=== PATIENT | male | born 1955 | race Caucasian/White ===

== ENCOUNTER 2017-02-11 18:08 | Inpatient (IN) | payer MEDICARE, MEDICAID ==
[~2017-02-11 18:08] MED LIST: Propofol* 100 ML ONE
[2017-02-11] MEDS ORDERED: Acetaminophen TAB* 325 MG PRN (18:18)
[2017-02-11] MEDS ORDERED: Morphine INJ* 2 MG/ML 1 ML SYRINGE IV PRN (18:22)
[2017-02-11] MEDS ORDERED: Dextrose 50% Syringe 50 ML* 25 GM/50 ML SYRINGE IV PUSH PRN (18:25)
[2017-02-11] MEDS: NS 0.9% 1000 ML* 1,000 ML IV SCH (18:31)
[2017-02-11 19:00] LABS: BUN/Creatinine Ratio 32.4 (8-20); Calcium 8.1 mg/dL (8.6-10.3); EGFR African American 91.5 (>60); EGFR Non-African American 71.1 (>60); Potassium 4.4 mmol/L (3.5-5.0)
[2017-02-11 19:11] LABS: Troponin I 0.04 ng/mL (<0.04)
--- NOTE | 2017-02-11 19:14 | RAD ---
Indication: Acute respiratory failure. Single frontal view of the chest performed at 1845 hours was reviewed. Comparison is made with previous exam dated February 15, 2016. No mediastinal shift is noted. There is cardiomegaly noted. Endotracheal tube is just above the jaqueline. Interstitial edema consistent with CHF is noted. IMPRESSION: CARDIOMEGALY. ENDOTRACHEAL TUBE IS JUST ABOVE THE JAQUELINE. PERSISTENT INTERSTITIAL EDEMA IS NOTED.
[2017-02-11] MEDS: Albuterol/Ipratropium NEB.SOL* Albuterol 2.5 MG/Ipratropium 0.5 MG 3 ML INH SCH (19:28)
[2017-02-11 20:33] LABS: FIO2 80; PCO2 Arterial 63 mmHg (35-45); Resp Rate 18; Ventilator Volume 480
[2017-02-11] MEDS: methylPREDNISolone SOD 40 MG* 1 ML VIAL IV SCH (20:51)
[2017-02-11] MEDS: Heparin VIAL(*) 5000 UNITS/ML VIAL (FIVE THOUSAND) SUBCUT SCH (20:51)
[2017-02-11] MEDS: Famotidine IV* 10 MG/ML 2 ML (20 mg) IV SLOW PU SCH (20:51)
[2017-02-11] MEDS: Tacrolimus CAP(*) 1 MG PO SCH (20:54)
[2017-02-11] MEDS: Propofol* 100 ML IV SCH (21:12)
[2017-02-12] MEDS: Albuterol/Ipratropium NEB.SOL* Albuterol 2.5 MG/Ipratropium 0.5 MG 3 ML INH SCH ×4 (00:24→19:26)
[2017-02-12] MEDS: Propofol* 100 ML IV SCH ×8 (00:30→23:12)
[2017-02-12 01:26] LABS: Troponin I 0.03 ng/mL (<0.04)
[2017-02-12] MEDS: Insulin LISPRO* 1 UNITS UNIT SUBCUT SCH ×4 (02:38→17:35)
[2017-02-12] MEDS: methylPREDNISolone SOD 40 MG* 1 ML VIAL IV SCH ×3 (03:09→18:04)
[2017-02-12] MEDS: NS 0.9% 1000 ML* 1,000 ML IV SCH ×2 (03:09→09:34)
--- NOTE | 2017-02-12 03:26 | HP ---
HISTORY AND PHYSICAL: DATE OF ADMISSION: 02/11/17 PRIMARY CARE PHYSICIAN: Dr. Brock. The patient is transferred from [facility] after he was placed on ventilator early in the morning. CHIEF COMPLAINT: Shortness of breath. HISTORY OF PRESENT ILLNESS FROM: From the patient's medical records, the patient came in in respiratory distress and confusion and slight agitation to [facility] on the evening of 02/10/17. He apparently wanted to go home, was agitated, was admitting to productive cough. The chest x-ray obtained in the emergency department showed vascular congestion, low lung volumes, small right- sided pleural effusion, and question pleural thickening. He was placed originally on BiPAP. His initial blood gas showed respiratory acidosis, which continued to progress and the patient was intubated at 5:40 a.m. on 02/11/17. A left-sided subclavian triple lumen was placed by Dr. Brock after intubation. The patient was placed on propofol and Dr. Tang accepted the patient for transfer. Unfortunately, there were issues with transportation in that it did not occur until approximately 12 hours later and the patient did arrive to our ICU at approximately 6 p.m. He is going to be admitted with diagnosis of acute respiratory failure. PAST MEDICAL HISTORY: Obtained from our medical records include: 1. Hepatitis C. 2. History of COPD, oxygen dependent. 3. History of anemia. 4. History of CHF in the past. 5. Hypertension. 6. Gastroesophageal reflux disease. 7. Diabetes. 8. Status post liver transplant. 9. History of abdominal hernia repair. MEDICATIONS: At home unknown. We will try to call [facility] and inquire about the medications, but apparently, his pharmacy is unknown and his medication list is unknown also. In [facility], the patient received a dose of Solu- Medrol as well as ceftriaxone and azithromycin. He also received nebulizer treatments and intravenous fluids. He was placed on propofol and transported to our facility. ALLERGIES: Noted to be SULFA ANTIBIOTICS, unknown reaction. FAMILY HISTORY: Per medical records, the patient has a history of cirrhosis of the liver in father. SOCIAL HISTORY: The patient has a history of long-term smoking despite being oxygen dependent. He lives by himself. He never appointed a surrogate decision maker that we know of. [facility] was unable to find or contact any family members. Right now, the patient is intubated and not able to communicate due to sedation required for intubation. REVIEW OF SYSTEMS: Unobtainable due to the patient being intubated and sedated. PHYSICAL EXAMINATION GENERAL: The patient is a pleasant 62-year-old male who is in no acute distress. The patient is sedated, intubated. When his sedation was slightly decreased, he was unable to show thumbs up bilaterally and move his toes bilaterally. VITAL SIGNS: Blood pressure of 120/100, heart rate of 88 and regular, respiratory rate 18, oxygen saturation 96% on FiO2 of 80% on ventilator. The patient's current ventilator settings is assist control with tidal volume of 480 mL, respiratory rate 18, FiO2 of 80%. The patient's temperature is 98.2. HEENT: Head: Atraumatic, normocephalic. Eyes: Pupils are uneven with the left pupil being of irregular shape and nonreactive and large, most likely posttraumatic. Oropharynx clear. Mucosa dry. ET tube and NG tube in place. NECK: Supple. No JVD, no bruit bilaterally. RESPIRATORY: Coarse breath sounds bilaterally. No wheezes. CARDIOVASCULAR: Regular rate and rhythm. No murmur. ABDOMEN: Very large ventral hernia present. When the patient coughs, it expands to a size of a basketball. It appears to be nontender. Bowel sounds are present in all 4 quadrants. Slightly tympanic to percussion abdomen. EXTREMITIES: There is no edema. Pulses +2 bilaterally. No clubbing or cyanosis. NEURO: Once again, the patient follows commands when his sedation was slightly lightened and there was no evidence of focal motor deficit that I could establish. He does have a left pupil that is dilated and appears either postsurgical or posttraumatically deformed. SKIN: On evaluation of the skin, no ecchymotic areas or rashes noted. The patient has left subclavian triple-lumen catheter in place. DIAGNOSTIC STUDIES/LAB DATA: Obtained at [facility] included today's ABG around intubation time showed pH of 7.12, PCO2 of 119, PO2 of 77, bicarb of 38.6. After intubation, his initial pH was 7.29, PCO2 of 71, PO2 of 68, bicarb of 33, and later on, at 1 p.m., his pH normalized at 7.38, PCO2 of 58, PO2 of 71 , bicarb of 34. The patient's one troponin obtained at [facility] was 0.04. CBC today: White blood cell count of 10.9, hemoglobin of 12.2, hematocrit of 41 , and platelets of 175. There were 6 bands on differential. Sodium was 134, potassium 4.8, chloride 96, BUN 34; creatinine 1.3, yesterday his creatinine was 1.5. The patient's liver function tests, it does not appear that they were present at admission at [facility]. The patient's INR was 1.2, PT of 12.6. Urinalysis showed specific gravity of 1.017 with trace blood, negative for nitrite, trace esterase, and +1 bacteria. Liver function tests, I just found, showed bilirubin of 0.5, AST of 16, ALT of 10, and alkaline phosphatase of 110. Albumin of 3.1, total protein of 7.2 that was obtained on 02/10/17. Urine drug screen was unremarkable. Portable chest x-ray obtained on admission showed impression: "Low lung volumes with cardiomegaly, mild apparent pulmonary vascular congestion which may be accentuated by the low lung volumes. Small right-sided pleural effusion versus pleural thickening. Recommend clinical correlation and followup." Portable chest x-ray after intubation showed ET tube that was seen was in the distal tip approximately 1.5 cm above the jaqueline. An NG tube was noted with the distal tip below the left hemidiaphragm. Bibasilar hypoaerations have been noted. No other definite significant interval changes. The patient's EKG obtained in our facility showed normal sinus rhythm with a heart rate of 78 beats per minute. Nonspecific ST changes in leads V1, V3, and V4. There were biphasic T waves. Flattening of T waves in leads III and aVF. Comparing with an EKG that we have at our facility from February of 2016, the biphasic T waves and flattening of T waves in leads III and aVF are new. ASSESSMENT AND PLAN: Acute ventilator-dependent respiratory failure due to chronic obstructive pulmonary disease, respiratory acidosis, and possible pneumonia. The patient is going to be continued on ventilator with the same settings as he was transferred on. ABG is going to be performed within an hour and settings may need to be adjusted. For the time being, sedation is going to be continued with propofol and Pepcid is going to be placed on IV for GI prophylaxis while n.p.o. We will continue ceftriaxone and azithromycin. Sputum cultures are going to be obtained. I will also continue Solu-Medrol at 40 mg IV every 8 hours. The case was discussed with Dr. Tang who agreed with the plan. In regards to history of liver transplant, the patient is going to be placed on Prograf at 5 mg via NG b.i.d. as previously taken. In regards to slight elevation of troponin, I will follow up with troponins after transfer. That will be drawn now. I do not believe the patient had complaints of chest pain at [facility]. He appears comfortable right now. His EKG is slightly changed from prior. It may be due to demand ischemia though. I will obtain transthoracic echocardiogram. The patient does have history of congestive heart failure, but unknown ejection fraction. For history of diabetes, the patient's medications at home are going to be held and the patient is going to be placed on insulin sliding scale with fingersticks every 6 hours. For DVT prophylaxis, the patient is going to be placed on heparin subcutaneously. The patient's code status is full. We do not know a surrogate or family member or healthcare proxy for this patient. I will ask Social Work to see the patient in the morning for consultation in regards to that and to help us establish next of kin. TIME SPENT: Approximately 72 minutes was spent on admission of this patient, more than half that time was spent in the patient's room and managing this critically sick patient. CC: Dr. Brock; Dr. Tang * [id number]/CPS #: [id number] MTDD
[2017-02-12] MEDS: Heparin VIAL(*) 5000 UNITS/ML VIAL (FIVE THOUSAND) SUBCUT SCH ×3 (05:11→21:10)
[2017-02-12 05:39] LABS: Hematocrit 37 % (42-52); Hemoglobin 11.7 g/dl (14.0-18.0); Mean Corpuscular HGB Conc 31 g/dl (31-36); Mean Corpuscular Hemoglobin 25 pg (27-31); Mean Corpuscular Volume 79 fL (80-94); Mean Platelet Volume 8 um3 (7.4-10.4); Red Blood Count 4.74 10^6/ul (4.0-5.4); Red Cell Distribution Width 18 % (10.5-15)
[2017-02-12 05:51] LABS: Albumin 2.9 g/dL (3.2-5.2); Calcium 7.9 mg/dL (8.6-10.3); EGFR African American 102.6 (>60); EGFR Non-African American 79.8 (>60); Globulin 2.7 g/dL (2-4); Potassium 4.5 mmol/L (3.5-5.0); Total Bilirubin 0.4 mg/dL (0.2-1.0); Total Protein 5.6 g/dL (6.4-8.9)
[2017-02-12] MEDS: Azithromycin IV(*) 500 MG in NS 0.9% 250 ML* 250 ML IVPB SCH (08:04)
[2017-02-12] MEDS: Famotidine IV* 10 MG/ML 2 ML (20 mg) IV SLOW PU SCH (08:04)
[2017-02-12] MEDS: Tacrolimus CAP(*) 1 MG PO SCH ×2 (08:04→21:11)
[2017-02-12] MEDS: cefTRIAXone VIAL(*) 1,000 MG in NS 0.9% 50 ML* 50 ML IVPB SCH (09:34)
[2017-02-12] MEDS ORDERED: NS 0.9% 1000 ML* 1,000 ML IV SCH (10:58)
--- NOTE | 2017-02-12 11:02 | PN ---
Progress Note - Progress Note Note: CRITICAL CARE MEDICINE Date: 02/12/17 Time: 925 SUBJECTIVE: Patient seen and examined. PHYSICAL EXAM: appears much older then age Vital Signs: Reviewed. Neurologic: sedated with propofol but off he follows commands. HEENT: pupils equal & reactive. Sclera anicteric. Trachea midline with 7.5 ett. Cardiovascular: distant, baldev, S1 S2 Respiratory: coarse rhonchi and mild wheeze bl L>R Abdomen: Soft, large reducible abdominal hernia and p;ost liver transplant scarring. nt. Extremities: Warm. chronic changes Access: left subcl LABS: Reviewed. IMAGING: Reviewed. MEDICATIONS: Reviewed. ASSESSMENT: 62 M Acute on chronic hypercarbic and hypoxic resp failure Tx for CAP O2 dep COPD uncontrolled DM h/o CHF h/o Liver transplant on suppressive tx with tacrolimus PLAN: Neurologic: keep sedated with prop. rass -2. prns Cardiovascular: Perfusing. bp stable. off ivf. Respiratory: attempted vent adjustments as he has required 70-80% FIO2. Poor compliance; unable to tolerate aprv. adjusted to PCV with ability to maintain but airway resistance also problematic and hence need to keep sedation adequate. Not going to be much to recruit or recover. COPD adjunctives. Gastrointestinal: start tf. on H2. chronic liver transplant f/u -on tacrolimus Renal/Metabolic: stable. dior for now. f/u lytes Infectious Disease: on C3 and azithro. f/u cx from [place] before de- escalation. Hematology: stable. hsq Endocrine: ssi. steroids. Musculoskeletal: bedrest currently. Psych/Social: will need to seek out next of kin as none found yet. place on nicotine td Supportive and preventative care as ordered. SUP: H2 VTE prophylaxis: heparin Dior catheter given critical illness, monitoring needs for accurate assessment of VELASQUEZ and KDIGO criteria for critically ill patients and to avoid potential harms of urinary retention, skin breakdown/ulcers. Disposition: ICU Code Status: Full currently Critical Care Time: 45min FJeanmarie Tang DO
[2017-02-12] MEDS: Chlorhexidine MOUTHWASH 0.12%* 15 ML UDC TOPICAL SCH ×4 (11:37→22:27)
--- NOTE | 2017-02-12 13:06 | ECHO ---
Patient: STEFANIE MCKINNEY [facility] Rec#: [id number] : 1955 Date: 02/12/2017 Age: 62y Height: 177.8 cm / 70.0 in Weight: 120.2 kg / 264.9 lbs Sex: M BSA: 2.35 Room#: ICU 6 Admit Date#: 02/11/2017 Type: Inpatient Referring: Yue Willis MD Reading: Claudy Blair MD Office Runner: [facility],RD[facility] Transthoracic Echocardiogram Indication: CHF BP: 113/63 HR: 54 Rhythm: Bradycardia Findings History: COPD, CHF, HTN, DM, liver transplant, smoker. Technical Comments: The study quality is good. Completed 1220 Left Ventricle: The left ventricular chamber size is normal. Moderate concentric left ventricular hypertrophy is observed. The estimated ejection fraction is 50-55%. Abnormal left ventricular diastolic function is observed. The patient was unable to perform a Valsalva maneuver. Left Atrium: The left atrium is mildly dilated. Right Ventricle: The right ventricle wall thickness is mildly increased. The right ventricle is mildly dilated. The right ventricular global systolic function is low normal. Right Atrium: The right atrium is mild to moderately dilated. Aortic Valve: The aortic valve is trileaflet. The aortic valve leaflets are mildly thickened. There is mild to moderate aortic regurgitation. There is no evidence of aortic stenosis. Mitral Valve: The mitral valve leaflets appear normal. There is a trace of mitral regurgitation. There is no evidence of mitral stenosis. Tricuspid Valve: The tricuspid valve leaflets are normal. There is mild tricuspid regurgitation. There is evidence of mild pulmonary hypertension. Pulmonic Valve: The pulmonic valve appears normal. There is a trace pulmonic regurgitation. Pericardium: There is no significant pericardial effusion. Aorta: There is no dilatation of the ascending aorta. The aortic arch is not well visualized. There is mild dilatation of the aortic root. Pulmonary Artery: The main pulmonary artery appears normal. Venous: Unable to accurately comment on the size collapsibility of the IVC as the patient in known to be on mechanical ventilation. Summary: There was not any prior study for comparison. Conclusions The left ventricular chamber size is normal. Moderate concentric left ventricular hypertrophy is observed. The estimated ejection fraction is 50-55%. The left atrium is mildly dilated. The right atrium is mild to moderately dilated. There is mild to moderate aortic regurgitation. There is a trace of mitral regurgitation. There is mild tricuspid regurgitation. Measurements Name Value Normal Range RVIDd (AP) 2D 3.4 cm (0.9 - 2.6) RVDdMajor (2D) 4.1 cm (2.2 - 4.4) RAd ISD 4CH 5.5 cm (3.4 - 4.9) RA (A4C)W 5 cm (2.9 - 4.6) IVSd (2D) 1.6 cm (0.6 - 1) LVPWd (2D) 1.5 cm (0.6 - 1) LVIDd (2D) 4.2 cm (3.6 - 5.4) LVIDs (2D) 2.5 cm - LV FS (2D) 39 % (25 - 45) Aortic Annulus 2.1 cm (1.4 - 2.6) Ao root diameter (2D) 3.6 cm (2.1 - 3.5) Ascending Ao 3.1 cm (2.1 - 3.4) LA dimension (AP) 2D 5.1 cm (2.3 - 3.8) LAd ISD 4CH 6 cm (2.9 - 5.3) LA ISD 4CH W 5.1 cm (2.5 - 4.5) Name Value Normal Range LA ESV SP 4CH (A/L) 80.7 ml - LA ESV SP 2CH (A/L) 71.28 ml - LA ESV BP (A/L) 80.32 ml - LA ESV BP (A/L) index 34 ml/m2 - LA ESV SP 4CH (MOD) 74.05 ml - LA ESV SP 2CH (MOD) 69.31 ml - Name Value Normal Range MV E-wave Vmax 0.8 m/sec - MV deceleration time 188 msec - MV A-wave Vmax 0.8 m/sec - MV E:A ratio 1 ratio - P. vein S-wave Vmax 0.4 m/sec - P. vein D-wave Vmax 0.4 m/sec - P. vein S:D Vmax ratio 1.1 ratio - P. vein A-wave duration 148 msec - LV septal e' Vmax 0.05 m/sec - LV lateral e' Vmax 0.06 m/sec - LV E:e' septal ratio 16 ratio - LV E:e' lateral ratio 13 ratio - Name Value Normal Range AV Vmax 1.7 m/sec - AV VTI 41.1 cm - AV peak gradient 11.6 mmHg - AV mean gradient 5.9 mmHg - LVOT Vmax 1.4 m/sec - LVOT VTI 34.9 cm - LVOT peak gradient 8 mmHg - LVOT mean gradient 3.6 mmHg - AR PHT 569.89 msec - AR peak gradient 56.4 mmHg - BON Vmax 0.7 m/sec - Name Value Normal Range TR Vmax 2.7 m/sec - TR peak gradient 29 mmHg - RAP 8 mmHg - RVSP 37 mmHg - IVC diameter 2 cm - Name Value Normal Range PV Vmax 0.6 m/sec - PV peak gradient 1.4 mmHg -
[2017-02-13] MEDS: Insulin LISPRO* 1 UNITS UNIT SUBCUT SCH ×5 (00:36→23:35)
[2017-02-13] MEDS: Albuterol/Ipratropium NEB.SOL* Albuterol 2.5 MG/Ipratropium 0.5 MG 3 ML INH SCH ×4 (01:32→19:34)
[2017-02-13] MEDS: methylPREDNISolone SOD 40 MG* 1 ML VIAL IV SCH ×3 (03:16→17:23)
[2017-02-13] MEDS: Propofol* 100 ML IV SCH ×7 (03:16→23:57)
[2017-02-13] MEDS: Chlorhexidine MOUTHWASH 0.12%* 15 ML UDC TOPICAL SCH ×6 (03:17→22:08)
[2017-02-13] MEDS: Clotrimazole 1% CREAM* 30 GM TOPICAL SCH ×3 (04:17→20:23)
[2017-02-13 04:31] LABS: Hematocrit 38 % (42-52); Hemoglobin 12.1 g/dl (14.0-18.0); Mean Corpuscular HGB Conc 32 g/dl (31-36); Mean Corpuscular Hemoglobin 25 pg (27-31); Mean Corpuscular Volume 79 fL (80-94); Mean Platelet Volume 8 um3 (7.4-10.4); Red Blood Count 4.83 10^6/ul (4.0-5.4); Red Cell Distribution Width 18 % (10.5-15); White Blood Count 7.8 10^3/ul (3.5-10.8)
[2017-02-13 04:45] LABS: Calcium 8.3 mg/dL (8.6-10.3); EGFR African American 96.7 (>60); EGFR Non-African American 75.2 (>60); Magnesium 2.6 mg/dL (1.9-2.7); Phosphorus 4.4 mg/dL (2.5-5.0); Potassium 4.4 mmol/L (3.5-5.0)
[2017-02-13] MEDS: Heparin VIAL(*) 5000 UNITS/ML VIAL (FIVE THOUSAND) SUBCUT SCH ×3 (05:31→20:23)
[2017-02-13] MEDS: Tacrolimus CAP(*) 1 MG PO SCH ×2 (08:30→20:23)
[2017-02-13] MEDS: Famotidine SUSP* 40 MG/5 ML ORAL.SUSP G TUBE SCH (08:30)
[2017-02-13] MEDS: Nicotine PATCH 21 MG/24 HR* PATCH TRANSDERM SCH (08:30)
[2017-02-13] MEDS: Azithromycin IV(*) 500 MG in NS 0.9% 250 ML* 250 ML IVPB SCH (08:51)
[2017-02-13] MEDS: cefTRIAXone VIAL(*) 1,000 MG in NS 0.9% 50 ML* 50 ML IVPB SCH (10:21)
[2017-02-13] MEDS ORDERED: Furosemide IV* 10 MG/ML VIAL (40 MG) IV SLOW PU ONE (10:53)
--- NOTE | 2017-02-13 10:56 | PN ---
Progress Note - Progress Note Note: CRITICAL CARE MEDICINE Date: 02/13/17 Time: 1000 SUBJECTIVE: Patient seen and examined. PHYSICAL EXAM: Vital Signs: Reviewed. Neurologic: sedated with propofol but awakens. HEENT: pupils equal & reactive. Sclera anicteric. Trachea midline with 7.5 ett. Cardiovascular: distant, S1 S2 Respiratory: coarse rhonchi and mild wheeze still but better aeration. Abdomen: Soft, hernia unchanged. Extremities: Warm. chronic changes Access: left subcl cvc LABS: Reviewed. IMAGING: Reviewed. MEDICATIONS: Reviewed. ASSESSMENT: 62 M Acute on chronic hypercarbic and hypoxic resp failure Tx for CAP O2 dep COPD uncontrolled DM h/o CHF h/o Liver transplant on suppressive tx with tacrolimus PLAN: Neurologic: keep sedated with prop. rass -1. prns Cardiovascular: Perfusing. bp stable. dose lasix today. Respiratory: SBT with cpap. needs high level. see if he can mobilize any secretions today and facilitate water movement. Hopefully, with all things equal , will loook towards liberation in next 24hr directly to bipap. Gastrointestinal: continued tf. H2. chronic liver transplant f/u on tacrolimus level Renal/Metabolic: stable. dior for now. f/u lytes Infectious Disease: on C3 and azithro. f/u cx from [place] Hematology: stable. hsq Endocrine: ssi. steroids. Musculoskeletal: bedrest currently. Psych/Social: sister in [place] next of kin Supportive and preventative care as ordered. SUP: H2 VTE prophylaxis: heparin Dior catheter given critical illness, monitoring needs for accurate assessment of VELASQUEZ and KDIGO criteria for critically ill patients and to avoid potential harms of urinary retention, skin breakdown/ulcers. Disposition: ICU Code Status: Full currently Critical Care Time: 35min FJeanmarie Tang DO
[2017-02-13] MEDS ORDERED: Insulin GLARGINE(*) 1 UNITS UNIT SUBCUT ONE (16:00)
[2017-02-13] MEDS: Nicotine Patch Removal NOTE PATCH OFF SCH (20:23)
[2017-02-14] MEDS: Albuterol/Ipratropium NEB.SOL* Albuterol 2.5 MG/Ipratropium 0.5 MG 3 ML INH SCH ×5 (01:28→19:54)
[2017-02-14] MEDS: methylPREDNISolone SOD 40 MG* 1 ML VIAL IV SCH ×2 (02:15→22:58)
[2017-02-14] MEDS: Chlorhexidine MOUTHWASH 0.12%* 15 ML UDC TOPICAL SCH ×3 (02:15→22:58)
[2017-02-14] MEDS: Propofol* 100 ML IV SCH ×3 (02:15→07:47)
[2017-02-14 04:44] LABS: Hematocrit 39 % (42-52); Mean Corpuscular HGB Conc 31 g/dl (31-36); Mean Corpuscular Hemoglobin 24 pg (27-31); Mean Corpuscular Volume 79 fL (80-94); Mean Platelet Volume 8 um3 (7.4-10.4); Red Blood Count 4.92 10^6/ul (4.0-5.4); Red Cell Distribution Width 18 % (10.5-15); White Blood Count 7.1 10^3/ul (3.5-10.8)
[2017-02-14 05:02] LABS: BUN/Creatinine Ratio 57.7 (8-20); Calcium 8.4 mg/dL (8.6-10.3); EGFR African American 143.6 (>60); EGFR Non-African American 111.7 (>60); Magnesium 2.6 mg/dL (1.9-2.7); Phosphorus 3.9 mg/dL (2.5-5.0); Potassium 4.9 mmol/L (3.5-5.0)
[2017-02-14] MEDS: Heparin VIAL(*) 5000 UNITS/ML VIAL (FIVE THOUSAND) SUBCUT SCH ×3 (05:04→22:31)
[2017-02-14] MEDS: Insulin LISPRO* 1 UNITS UNIT SUBCUT SCH ×4 (06:09→22:59)
[2017-02-14] MEDS: Azithromycin IV(*) 500 MG in NS 0.9% 250 ML* 250 ML IVPB SCH (07:56)
[2017-02-14] MEDS: Famotidine SUSP* 40 MG/5 ML ORAL.SUSP G TUBE SCH (07:56)
[2017-02-14] MEDS: Clotrimazole 1% CREAM* 30 GM TOPICAL SCH ×2 (07:56→21:11)
[2017-02-14] MEDS: Tacrolimus CAP(*) 1 MG PO SCH ×2 (07:56→22:31)
[2017-02-14] MEDS: Nicotine PATCH 21 MG/24 HR* PATCH TRANSDERM SCH (07:57)
[2017-02-14] MEDS: cefTRIAXone VIAL(*) 1,000 MG in NS 0.9% 50 ML* 50 ML IVPB SCH (10:42)
--- NOTE | 2017-02-14 11:37 | PN ---
Progress Note - Progress Note Note: CRITICAL CARE MEDICINE Date: 02/14/17 Time: 825 SUBJECTIVE: Patient seen and examined. Cpap PHYSICAL EXAM: Vital Signs: Reviewed. Neurologic: sedated with propofol but awakens and communicating. HEENT: pupils equal & reactive. Sclera anicteric. Cardiovascular: distant, S1 S2 Respiratory: less rhonchi just distant without wheeze. 45% Abdomen: Soft, hernia unchanged. Extremities: Warm. chronic changes and dep edema Access: left subcl cvc LABS: Reviewed. IMAGING: Reviewed. MEDICATIONS: Reviewed. ASSESSMENT: 62 M Acute on chronic hypercarbic and hypoxic resp failure Tx for CAP O2 dep COPD uncontrolled DM h/o CHF h/o Liver transplant on suppressive tx with tacrolimus PLAN: Neurologic: hold prop. prns Cardiovascular: Perfusing. bp stable. mobilized fluids. Respiratory: SBT as well as it will get. liberate directly to bipap. hopefuly can maintain with this for 2hrs or so and then come off. Would anticipate nocturnal bipap. Gastrointestinal: tf held. H2. Renal/Metabolic: stable. dior for now. f/u lytes Infectious Disease: on C3 and azithro; can dc C3 and complete 5 day course azithro. Hematology: stable. hsq Endocrine: ssi. steroid taper Musculoskeletal: bedrest currently, but oob later Psych/Social: see if pt can regain capacitance Supportive and preventative care as ordered. SUP: H2 VTE prophylaxis: heparin Dior catheter given critical illness, monitoring needs for accurate assessment of VELASQUEZ and KDIGO criteria for critically ill patients and to avoid potential harms of urinary retention, skin breakdown/ulcers. Disposition: ICU Code Status: Full currently Critical Care Time: 35min Fam Tang DO
[2017-02-14] MEDS ORDERED: Insulin GLARGINE(*) 1 UNITS UNIT SUBCUT ONE (11:59)
[2017-02-14] MEDS ORDERED: Furosemide IV* 10 MG/ML VIAL (40 MG) IV SLOW PU ONE (12:00)
[2017-02-14] MEDS ORDERED: Ondansetron INJ* 2 MG/ML VIAL ONE (15:35)
[2017-02-14] MEDS ORDERED: Ondansetron INJ* 2 MG/ML VIAL IV PRN (15:38)
[2017-02-14] MEDS ORDERED: Senna TAB PO PRN (15:38)
[2017-02-14] MEDS: predniSONE TAB* 20 MG PO SCH (15:39)
[2017-02-14] MEDS ORDERED: Albuterol/Ipratropium NEB.SOL* Albuterol 2.5 MG/Ipratropium 0.5 MG 3 ML ONE (19:45)
[2017-02-14] MEDS: Nicotine Patch Removal NOTE PATCH OFF SCH (21:11)
[2017-02-15] MEDS: Albuterol/Ipratropium NEB.SOL* Albuterol 2.5 MG/Ipratropium 0.5 MG 3 ML INH SCH ×3 (02:08→14:10)
[2017-02-15] MEDS: Heparin VIAL(*) 5000 UNITS/ML VIAL (FIVE THOUSAND) SUBCUT SCH ×3 (05:20→22:02)
[2017-02-15 06:03] LABS: BUN/Creatinine Ratio 46.7 (8-20); Calcium 8.3 mg/dL (8.6-10.3); EGFR African American 174.4 (>60); EGFR Non-African American 135.6 (>60); Magnesium 2.4 mg/dL (1.9-2.7); Phosphorus 3.4 mg/dL (2.5-5.0); Potassium 4.6 mmol/L (3.5-5.0)
[2017-02-15] MEDS: Insulin LISPRO* 1 UNITS UNIT SUBCUT SCH ×4 (07:34→22:00)
[2017-02-15] MEDS: Nicotine PATCH 21 MG/24 HR* PATCH TRANSDERM SCH (09:16)
[2017-02-15] MEDS: Azithromycin TAB* 250 MG PO SCH (09:16)
[2017-02-15] MEDS: predniSONE TAB* 20 MG PO SCH (09:16)
[2017-02-15] MEDS: Tacrolimus CAP(*) 1 MG PO SCH ×2 (09:17→21:59)
[2017-02-15] MEDS: Clotrimazole 1% CREAM* 30 GM TOPICAL SCH ×2 (09:17→22:10)
[2017-02-15] MEDS ORDERED: predniSONE TAB* 20 MG PO SCH (10:00)
--- NOTE | 2017-02-15 11:01 | PN ---
Progress Note - Progress Note Note: CRITICAL CARE MEDICINE Date: 02/15/17 Time: 925 SUBJECTIVE: Patient seen and examined. utilized bipap overnight. PHYSICAL EXAM: Vital Signs: Reviewed. 4L Neurologic: communicating well. HEENT: pupils equal & reactive. Sclera anicteric. Cardiovascular: distant, S1 S2 Respiratory: rapid shallow, comfortable Abdomen: Soft, hernia unchanged. Extremities: Warm. chronic changes and dep edema Access: left subcl cvc LABS: Reviewed. IMAGING: Reviewed. MEDICATIONS: Reviewed. ASSESSMENT: 62 M Acute on chronic hypercarbic and hypoxic resp failure Tx for CAP O2 dep COPD uncontrolled DM h/o CHF h/o Liver transplant on suppressive tx with tacrolimus PLAN: Neurologic: hold prop. prns Cardiovascular: Perfusing. mobilized fluids. hold off on lasix Respiratory: 4L. chronic dosing and can avoid bipap. adjunctives. Gastrointestinal: po diet Renal/Metabolic: stable. dior out Infectious Disease: azithro x one more day Hematology: stable. hsq Endocrine: ssi. steroid taper Musculoskeletal: oob. pt eval Psych/Social: holds capacity; can consider palliative eval Supportive and preventative care as ordered. SUP: po VTE prophylaxis: heparin Disposition: floor; likely home in another 24-48h. Code Status: Full currently Critical Care Time: 25min Fam Tang DO
[2017-02-15] MEDS ORDERED: Albuterol/Ipratropium NEB.SOL* Albuterol 2.5 MG/Ipratropium 0.5 MG 3 ML INH PRN (14:07)
[2017-02-15] MEDS: Nicotine Patch Removal NOTE PATCH OFF SCH (22:10)
[2017-02-16] MEDS: Heparin VIAL(*) 5000 UNITS/ML VIAL (FIVE THOUSAND) SUBCUT SCH ×2 (05:37→12:41)
[2017-02-16 07:31] VITALS: BP 125/47
[2017-02-16] MEDS: Insulin LISPRO* 1 UNITS UNIT SUBCUT SCH ×2 (08:09→12:40)
[2017-02-16] MEDS: Azithromycin TAB* 250 MG PO SCH (08:58)
[2017-02-16] MEDS: Tacrolimus CAP(*) 1 MG PO SCH (08:58)
[2017-02-16] MEDS: Nicotine PATCH 21 MG/24 HR* PATCH TRANSDERM SCH (08:59)
[2017-02-16] MEDS ORDERED: predniSONE TAB* 20 MG PO SCH (09:00)
[2017-02-16] MEDS: Clotrimazole 1% CREAM* 30 GM TOPICAL SCH (09:01)
--- NOTE | 2017-02-18 17:02 | PN ---
Hospitalist Progress Note . HOSPITALIST DISCHARGE NOTE: See dc instructions and summary by me. Patient stable for dc dc instructions reviewed with the patient at the bedside. DC patient to [facility] today.
== END 2017-02-16 15:30 | DRG 208 ==
LOC: ICU 18:08 → MED 02-15 11:00
PROVIDERS: ADMIT Internal Medicine; ATTEND Internal Medicine
PROC: 5A1945Z Respiratory Ventilation, 24-96 Consecutive Hours (ICD-10-PCS; principal; 2017-02-11)
PROC: 0T9B70Z Drainage of Bladder with Drainage Device, Via Natural or Artificial Opening (ICD-10-PCS; 2017-02-12)
PROC: 5A09457 Assistance with Respiratory Ventilation, 24-96 Consecutive Hours, Continuous Positive Airway Pressure (ICD-10-PCS; 2017-02-14)
PROC: 0TPBX0Z Removal of Drainage Device from Bladder, External Approach (ICD-10-PCS; 2017-02-15)
DX: J96.21 Acute and chronic respiratory failure with hypoxia (principal); J18.9 Pneumonia, unspecified organism; I11.0 Hypertensive heart disease with heart failure; J90 Pleural effusion, not elsewhere classified; Z94.4 Liver transplant status; E87.2 Acidosis; I50.9 Heart failure, unspecified; J96.22 Acute and chronic respiratory failure with hypercapnia; E11.65 Type 2 diabetes mellitus with hyperglycemia; B19.20 Unspecified viral hepatitis C without hepatic coma; J44.9 Chronic obstructive pulmonary disease, unspecified; F17.200 Nicotine dependence, unspecified, uncomplicated; K43.9 Ventral hernia without obstruction or gangrene; K21.9 Gastro-esophageal reflux disease without esophagitis; Z79.52 Long term (current) use of systemic steroids; Z99.81 Dependence on supplemental oxygen; Z83.79 Family history of other diseases of the digestive system; Z88.2 Allergy status to sulfonamides
CPT/HCPCS: 36415; 36600; 71010; 80048; 80053; 82803; 82947; 83735; 83880; 84100; 84484; 85025; 85027; 87070; 87205; 87641; 93005; 93306; 94002; 94003; 94640; 94660; 94760; A9270-GY; J0456; J0696; J1644; J1940; J2405; J2704; J2920; J7507; J7512

== ENCOUNTER 2017-05-16 01:50 | Inpatient (IN) | payer MEDICARE, MEDICAID ==
[2017-05-16] MEDS ORDERED: Ondansetron INJ* 2 MG/ML VIAL IV PRN (03:24)
[2017-05-16] MEDS ORDERED: Dextrose 50% Syringe 50 ML* 25 GM/50 ML SYRINGE IV PUSH PRN (03:33)
[2017-05-16] MEDS ORDERED: Propofol* 10 MG/ML 20 ML BTL IV PUSH ONE (03:40)
[2017-05-16] MEDS ORDERED: Propofol* 100 ML ONE (03:41)
[2017-05-16] MEDS ORDERED: Furosemide IV* 10 MG/ML 2 ML VIAL (20 MG) IV ONE (04:00)
[2017-05-16 04:05] LABS: FIO2 30; Resp Rate 16; Ventilator Volume 500
[2017-05-16 04:12] LABS: PCO2 Arterial 88 mmHg (35-45)
[2017-05-16 04:14] LABS: Hematocrit 36 % (42-52); Mean Corpuscular HGB Conc 33 g/dl (31-36); Mean Corpuscular Hemoglobin 27 pg (27-31); Mean Corpuscular Volume 82 fL (80-94); Mean Platelet Volume 8 um3 (7.4-10.4); Red Blood Count 4.42 10^6/ul (4.0-5.4); Red Cell Distribution Width 17 % (10.5-15); White Blood Count 5.7 10^3/ul (3.5-10.8)
[2017-05-16 04:24] LABS: ALT 6 U/L (7-52); AST 7 U/L (13-39); Albumin 3.6 g/dL (3.2-5.2); Alkaline Phosphatase 82 U/L (34-104); BUN/Creatinine Ratio 21.3 (8-20); Blood Urea Nitrogen 17 mg/dL (6-24); Calcium 8.7 mg/dL (8.6-10.3); Chloride 92 mmol/L (101-111); EGFR African American 125.2 (>60); EGFR Non-African American 97.3 (>60); Globulin 3.1 g/dL (2-4); Glucose 171 mg/dL (70-100); Indirect Bilirubin 0.3 mg/dL (0.3-1.0); Magnesium 2.1 mg/dL (1.9-2.7); Potassium 5.1 mmol/L (3.5-5.0); Sodium 136 mmol/L (133-145); Total Protein 6.7 g/dL (6.4-8.9)
[2017-05-16 04:30] LABS: CO2 Carbon Dioxide 44 mmol/L (22-32)
[2017-05-16] MEDS: Propofol* 100 ML IV SCH ×4 (04:55→22:38)
[2017-05-16] MEDS: Insulin LISPRO* 1 UNITS UNIT SUBCUT SCH ×4 (04:59→22:13)
[2017-05-16] MEDS: Chlorhexidine MOUTHWASH 0.12%* 15 ML UDC SWISH SPIT SCH ×5 (05:23→22:13)
[2017-05-16] MEDS: Heparin VIAL(*) 5000 UNITS/ML VIAL (FIVE THOUSAND) SUBCUT SCH ×3 (05:23→22:12)
--- NOTE | 2017-05-16 07:53 | RAD ---
INDICATION: ET tube placement COMPARISON: February 11, 2017 TECHNIQUE: An AP portable view obtained at 0340 hours is submitted. FINDINGS: Bones/Soft Tissues: There are no acute bony findings. A nasogastric tube passes normally through the mediastinum. The endotracheal tube remains approximately 1 cm above the jaqueline Cardiomediastinal: The heart is normal in size. Central pulmonary vessels and interstitium are prominent compatible with interstitial edema. Lungs: There is no focal consolidation. Pleura: Bilateral pleural effusions, unchanged. Other: None IMPRESSION: MODERATE VASCULAR CONGESTION WITHOUT SIGNIFICANT INTERVAL CHANGE. ENDOTRACHEAL TUBE UNCHANGED IN POSITION 1 CM ABOVE THE JAQUELINE.
[2017-05-16] MEDS ORDERED: Mometasone/Formoter 200/5 MDI INH SCH (09:00)
--- NOTE | 2017-05-16 09:06 | HP ---
CC: Dr. Brock * ADMISSION HISTORY AND PHYSICAL: DATE OF ADMISSION: 05/16/17 PRIMARY CARE PROVIDER: Dr. Julien Brock. HEALTHCARE PROXY: Unable to identify secondary to the patient's intubated status. CODE STATUS: Presumed full code. SOURCE OF INFORMATION: History obtained from review of records from [facility] [place], as well [place] [facility] [place] RELIABILITY: Fair. CHIEF COMPLAINT: Hypercapnic respiratory failure requiring intubation. HISTORY OF PRESENT ILLNESS: This is a 62-year-old man, with past medical history including COPD with chronic respiratory failure, on home oxygen; continued tobacco abuse. [place] [facility] [place] and he presented to [facility] and was transferred after being intubated with hypercapnic respiratory failure in February of 2007. He was treated for his COPD exacerbation at that time and ultimately discharged. He presented to [facility] again on 05/15/17 with a sudden onset of shortness of breath and was treated with ceftriaxone, as well as IV steroids. However, mental status continued to deteriorate and the patient became increasingly lethargic. He had serial arterial blood gas measurements indicating hypercapnic respiratory failure with partial pressure of CO2 increasing from 83.9 to 103.7 with pH of 7.2 prior to endotracheal intubation. I discussed transfer to Dr. Brock and related followup information with this author prior to transfer. The patient was received intubated, nonsedated, however, still quite lethargic. He is unable to contribute meaningfully to admission history and physical. PAST MEDICAL HISTORY: Includes: 1. Advanced COPD with chronic respiratory failure, requiring home oxygen. 2. GERD. 3. Iron-deficiency anemia. 4. History of hepatitis C, status post liver transplant. 5. Type 2 diabetes. 6. Liver transplant in 1998. 7. Umbilical hernia repair in 1998. 8. Liver biopsy in 2013. 9. History of CHF per chart review. 10. Hypertension. 11. Renal insufficiency. HOME MEDICATIONS: Not readily apparent from information received from [facility]. MEDICATIONS: [facility] medication claim history was sent, however, includes no doses. Medications include Lasix, ipratropium/albuterol, tacrolimus, pantoprazole, ferrous sulfate, magnesium oxide, propranolol, cetirizine, ramipril, Combivent, again dose is not confirmed. ALLERGIES: To SULFA. FAMILY HISTORY: Cirrhosis in his father. SOCIAL HISTORY: Active tobacco use unknown years. Still smokes 1 pack per day. Lives alone. Denies alcohol or drugs per intake of Dr. Brock. REVIEW OF SYSTEMS: Unable to obtain. PHYSICAL EXAMINATION GENERAL: Intubated. No central line access, lethargic, however, agitated when moved for x-ray or when checked for ABG. VITAL SIGNS: When seen by this author 143/73, respiratory rate is 18, 91% on 40 % FiO2, T-max not yet checked. HEART: He has a soft 2/6 systolic ejection murmur. He has decreased breath sounds throughout with rales on the bases. ABDOMEN: Obese, soft, nontender, nondistended. EXTREMITIES: Warm, well perfused. He has 1+ bilateral lower extremity edema. He is moving all extremities, withdraws to pain. A and O x0. DIAGNOSTIC STUDIES/LAB DATA: Labs from [facility] [place] reviewed. Additional labs checked now. ABG checked pH 7.3, PCO2 down trending to 83 from 103 on 05/15/17 at 2336. Data reviewed. Chest x-ray, this author's impression shows properly placed ET tube, bilateral pulmonary vascular congestion, potential consolidation of left lower lobe, left effusion. ASSESSMENT AND PLAN: This is a 62-year-old man with past medical history of chronic obstructive pulmonary disease with chronic respiratory failure presenting with sudden onset shortness of breath decompensating hypercarbic respiratory failure, requiring endotracheal tube intubation. 1. Hypercarbic respiratory failure, improving with mechanical ventilation. Start propofol now, titrate to LENA of negative 1 to 2. Sedation holiday and vacation in the morning. Possible extubation trial under the guidance of our evaporator supervisor. Continue IV steroids for suspected chronic obstructive pulmonary disease exacerbation, although not on our records. Currently, x-ray at [facility] indicated potential consolidation. We will continue ceftriaxone at this time. Continue DuoNeb as well. The patient will need continued tobacco cessation counseling. 2. Type 2 diabetes, fingersticks q.6 hours. Low-dose Lispro sliding scale, increase as necessary. 3. Hyperkalemia. On [facility] labs on 05/15/17 indicated potassium of 5.8. Recheck now. Treat as necessary. 4. Hypertension. Holding all home medications. 5. History of liver transplantation. Continue tacrolimus. 6. FEN. Holding fluids at this time. Consider feeding with OG tube if unable to be extubated in the morning. 7. DVT prophylaxis. Heparin subcu. [id number]/[facility] #: [id number] EUGENIA
[2017-05-16] MEDS: methylPREDNISolone SOD 40 MG* 1 ML VIAL IV SCH ×2 (09:26→16:51)
[2017-05-16] MEDS: Tacrolimus CAP(*) 1 MG PO SCH (09:33)
[2017-05-16] MEDS ORDERED: NS 0.9% 1000 ML* 1,000 ML IV ONE (09:44)
[2017-05-16] MEDS ORDERED: Famotidine SUSP* 40 MG/5 ML ORAL.SUSP G TUBE ONE (10:30)
[2017-05-16] MEDS: Azithromycin IV(*) 500 MG in NS 0.9% 250 ML* 250 ML IVPB SCH (10:31)
[2017-05-16] MEDS: Nystatin TOP POWDER* 15 GM BTL TOPICAL PRN (10:37)
[2017-05-16] MEDS ORDERED: Acetaminophen ADULT LIQ* 650 MG/20.3 ML UDC PO PRN (11:27)
[2017-05-16] MEDS ORDERED: fentaNYL* 50 MCG/ML 2 ML VIAL (100 MCG VIAL) IV SLOW PU PRN (11:28)
[2017-05-16] MEDS ORDERED: Albuterol/Ipratropium NEB.SOL* Albuterol 2.5 MG/Ipratropium 0.5 MG 3 ML INH PRN (11:31)
--- NOTE | 2017-05-16 11:34 | PN ---
Progress Note - Progress Note Date of Service: 05/16/17 Note: CRITICAL CARE MEDICINE Date: 05/16/17 Time: 1100 SUBJECTIVE: Patient seen and examined. PHYSICAL EXAM: older then age. nad Vital Signs: Reviewed. stable Neurologic: awakes on vent, communicating. rass -2 HEENT: pupils equal. Sclera anicteric. Trachea midline. Cardiovascular: distant S1 S2 Respiratory: distant, no rales Abdomen: Soft, obese, nt. large hernia and chronic scarring post liver transplant. Extremities: Warm. Access: 2 piv LABS: Reviewed. IMAGING: Reviewed. MEDICATIONS: Reviewed. ASSESSMENT: 62 M Acute on chronic hypoxic and hypercarbic resp failure O2 dep COPD COPD exac Hx Liver transplant on tacrolimus PLAN: Neurologic: comfortable. low dose prop prn. Cardiovascular: Perfusing. needs a touch NaCl. See what he can mobilize beyond that. Respiratory: duonebs. needs MV today. APRV and see if he can recruit. then High level cpap towards liberation directly to niv when able to achieve perhaps in a day or 2. Gastrointestinal: ogt. hold on tf today for optimize for a tomorrow liberation. if unable to be there tomorrow, would anticipate tf. sup. Renal/Metabolic: dior. f/l lytes and give cl today to allow HCO3 clearance. Infectious Disease: recieved C3. No infective signs. Utilize azithro alone for copd exac and anti-inflam. Hematology: stable. hsq. Endocrine: on steroids. ssi. Musculoskeletal: bedrest currently but avoid deconditioning. Psych/Social: f/u Supportive and preventative care as ordered. Vaccine: f/u needs SUP: H2 VTE prophylaxis: heparin Dior catheter given critical illness, monitoring needs for accurate assessment of VELASQUEZ and KDIGO criteria for critically ill patients and to avoid potential harms of urinary retention, skin breakdown/ulcers. Disposition: ICU Code Status: Full presently Critical Care Time: 45min Fam Tang DO
[2017-05-16] MEDS: Albuterol/Ipratropium NEB.SOL* Albuterol 2.5 MG/Ipratropium 0.5 MG 3 ML INH SCH ×2 (12:05→17:54)
[2017-05-16] MEDS ORDERED: cefTRIAXone VIAL(*) 1,000 MG in NS 0.9% 50 ML* 50 ML IVPB SCH (16:30)
[2017-05-16] MEDS: NS 0.9% 1000 ML* 1,000 ML IV SCH (17:02)
[2017-05-17] MEDS: Albuterol/Ipratropium NEB.SOL* Albuterol 2.5 MG/Ipratropium 0.5 MG 3 ML INH SCH ×4 (00:08→20:11)
[2017-05-17] MEDS: methylPREDNISolone SOD 40 MG* 1 ML VIAL IV SCH ×3 (00:22→16:22)
[2017-05-17] MEDS: Chlorhexidine MOUTHWASH 0.12%* 15 ML UDC SWISH SPIT SCH ×3 (02:05→08:44)
[2017-05-17] MEDS: Insulin LISPRO* 1 UNITS UNIT SUBCUT SCH ×4 (04:15→21:38)
[2017-05-17 05:41] LABS: Hematocrit 36 % (42-52); Hemoglobin 11.9 g/dl (14.0-18.0); Mean Corpuscular HGB Conc 33 g/dl (31-36); Mean Corpuscular Hemoglobin 27 pg (27-31); Mean Corpuscular Volume 81 fL (80-94); Mean Platelet Volume 8 um3 (7.4-10.4); Red Blood Count 4.42 10^6/ul (4.0-5.4); Red Cell Distribution Width 16 % (10.5-15); White Blood Count 5.9 10^3/ul (3.5-10.8)
[2017-05-17 05:57] LABS: BUN/Creatinine Ratio 40.5 (8-20); Calcium 8.8 mg/dL (8.6-10.3); EGFR African American 118.3 (>60); Magnesium 2.4 mg/dL (1.9-2.7); Phosphorus 3.1 mg/dL (2.5-5.0); Potassium 4.4 mmol/L (3.5-5.0)
[2017-05-17] MEDS: Heparin VIAL(*) 5000 UNITS/ML VIAL (FIVE THOUSAND) SUBCUT SCH ×3 (06:04→21:38)
[2017-05-17] MEDS: NS 0.9% 1000 ML* 1,000 ML IV SCH (06:32)
[2017-05-17] MEDS: Propofol* 100 ML IV SCH (06:38)
[2017-05-17] MEDS: Tacrolimus CAP(*) 1 MG PO SCH (08:45)
[2017-05-17] MEDS: Azithromycin IV(*) 500 MG in NS 0.9% 250 ML* 250 ML IVPB SCH (10:29)
--- NOTE | 2017-05-17 12:05 | PN ---
Progress Note - Progress Note Date of Service: 05/17/17 Note: CRITICAL CARE MEDICINE Date: 05/17/17 Time: 1020 SUBJECTIVE: Patient seen and examined. PHYSICAL EXAM: Vital Signs: Reviewed. stable. Neurologic: awakes, communicating. no complaints., HEENT: pupils equal. Sclera anicteric. Trachea midline. Cardiovascular: distant S1 S2 Respiratory: distant Abdomen: Soft, obese, nt. large hernia and chronic scarring post liver transplant. Extremities: Warm. Access: 2 piv LABS: Reviewed. IMAGING: Reviewed. MEDICATIONS: Reviewed. ASSESSMENT: 62 M Acute on chronic hypoxic and hypercarbic resp failure O2 dep COPD COPD exac Hx Liver transplant on tacrolimus PLAN: Neurologic: comfortable. prop off Cardiovascular: Perfusing. received fluid yesterday but manager labor relations dc now. allow him to mobilize needs. Respiratory: looks great on cpap 08/17 and will liberate today. may need niv early on but can see how he does. copd adjunctives. Gastrointestinal: po diet later today anticipated. Renal/Metabolic: dior potentially out later. BUN up with steroids. Infectious Disease: course of azithro for copd exac benefit Hematology: stable. hsq. Endocrine: steroids to taper. ssi. Musculoskeletal: oob later Psych/Social: f/u needs Supportive and preventative care as ordered. Vaccine: f/u needs SUP: H2 to po VTE prophylaxis: heparin Dior catheter given critical illness, monitoring needs for accurate assessment of VELASQUEZ and KDIGO criteria for critically ill patients and to avoid potential harms of urinary retention, skin breakdown/ulcers. Disposition: ICU Code Status: Full Critical Care Time: 35min Fam Tang DO
[2017-05-17] MEDS: Propranolol TAB* 20 MG PO SCH ×2 (16:23→21:37)
[2017-05-17] MEDS: Mometasone/Formoter 100/5 MDI INH SCH (20:11)
[2017-05-18] MEDS: Albuterol/Ipratropium NEB.SOL* Albuterol 2.5 MG/Ipratropium 0.5 MG 3 ML INH SCH ×4 (02:58→19:27)
[2017-05-18] MEDS: Insulin LISPRO* 1 UNITS UNIT SUBCUT SCH ×5 (04:35→21:14)
[2017-05-18] MEDS: Heparin VIAL(*) 5000 UNITS/ML VIAL (FIVE THOUSAND) SUBCUT SCH ×3 (05:01→21:15)
[2017-05-18 06:35] LABS: BUN/Creatinine Ratio 47.6 (8-20); Calcium 8.5 mg/dL (8.6-10.3); EGFR African American 164.9 (>60); EGFR Non-African American 128.2 (>60); Potassium 4.3 mmol/L (3.5-5.0)
[2017-05-18] MEDS: Azithromycin TAB* 250 MG PO SCH (07:27)
[2017-05-18] MEDS: Tacrolimus CAP(*) 1 MG PO SCH (07:27)
[2017-05-18] MEDS: predniSONE TAB* 20 MG PO SCH (07:27)
[2017-05-18] MEDS: Propranolol TAB* 20 MG PO SCH ×3 (07:27→21:14)
[2017-05-18] MEDS: Mometasone/Formoter 100/5 MDI INH SCH ×2 (07:58→19:29)
--- NOTE | 2017-05-18 10:53 | PN ---
Progress Note - Progress Note Date of Service: 05/18/17 Note: CRITICAL CARE MEDICINE Date: 05/18/17 Time: 920 SUBJECTIVE: Patient seen and examined. PHYSICAL EXAM: Vital Signs: Reviewed. stable. Neurologic: awake, communicating. no complaints., HEENT: pupils equal. Sclera anicteric. Trachea midline. Cardiovascular: distant S1 S2 Respiratory: distant, no wheeze today Abdomen: Soft, obese, nt. large hernia and chronic scarring post liver transplant. Extremities: Warm. Access: 1 piv LABS: Reviewed. IMAGING: Reviewed. MEDICATIONS: Reviewed. ASSESSMENT: 62 M Acute on chronic hypoxic and hypercarbic resp failure O2 dep COPD COPD exac Hx Liver transplant on tacrolimus - outpt tacrolimus DM - f/u with outpt rx PLAN: doing fine. no bipap needs yesterday. oob. ambulate. dior out. po. prednisone taper. copd adjunctives. 5 day total azithro to floor today to ensure stability and then hopefully discharge to home tomorrow Supportive and preventative care as ordered. Disposition: floor Code Status: Full Critical Care Time: 25min Fam Tang DO
[2017-05-19] MEDS: Albuterol/Ipratropium NEB.SOL* Albuterol 2.5 MG/Ipratropium 0.5 MG 3 ML INH SCH ×3 (00:40→12:37)
[2017-05-19] MEDS: Heparin VIAL(*) 5000 UNITS/ML VIAL (FIVE THOUSAND) SUBCUT SCH ×2 (05:05→14:01)
[2017-05-19 06:26] LABS: BUN/Creatinine Ratio 34.8 (8-20); Calcium 8.5 mg/dL (8.6-10.3); EGFR African American 156.3 (>60); EGFR Non-African American 121.5 (>60); Potassium 4.6 mmol/L (3.5-5.0)
[2017-05-19] MEDS: Mometasone/Formoter 100/5 MDI INH SCH (08:15)
[2017-05-19] MEDS: Insulin LISPRO* 1 UNITS UNIT SUBCUT SCH ×3 (08:25→17:26)
[2017-05-19] MEDS: Tacrolimus CAP(*) 1 MG PO SCH (08:35)
[2017-05-19] MEDS: Propranolol TAB* 20 MG PO SCH ×2 (08:35→14:01)
[2017-05-19] MEDS: Nystatin TOP POWDER* 15 GM BTL TOPICAL PRN (08:36)
[2017-05-19] MEDS: Azithromycin TAB* 250 MG PO SCH (08:36)
[2017-05-19] MEDS: predniSONE TAB* 20 MG PO SCH (08:36)
[2017-05-19] MEDS ORDERED: Influenza VAC *QUAD* 2017-18* 0.5 ML SYRINGE IM ONE (09:00)
[2017-05-19 17:08] VITALS: BP 119/44
--- NOTE | 2017-05-20 08:09 | DS ---
DISCHARGE SUMMARY: DATE OF ADMISSION: 05/16/17 DATE OF DISCHARGE: 05/19/17 ADMITTING PROVIDER: Vinh Mancia MD ATTENDING PHYSICIAN: Tc Peterson MD; and Garry Tang DO, critical care physician. PRIMARY CARE PROVIDER: Dr. Julien Brock. CHIEF COMPLAINT: Shortness of breath. PRIMARY DIAGNOSES: Hypercapnic respiratory failure requiring intubation likely secondary to severe chronic obstructive pulmonary disease exacerbation in the setting of continued home tobacco use. HISTORY OF PRESENT ILLNESS AND HOSPITAL COURSE: Donald Angela Jr. is a 62-year-old man with history of COPD with chronic hypoxic respiratory failure on home oxygen 3 L [id number], continued tobacco use (2 to 3 cigarettes a day), GERD; iron-deficiency anemia; history of hepatitis C, status post liver transplant; type 2 diabetes; umbilical hernia repair; CHF, hypertension, and renal insufficiency. The patient is obese and suffers from 3 to 4 pillow orthopnea, likely has a degree of obstructive sleep apnea as well The patient has a history of intubation in February of 2007. He presented to [facility] on 05/15/17 with sudden onset shortness of breath, treated with ceftriaxone and IV steroids, but became progressively lethargic. ABG at that time showed bicarb increasing from 83.9 to 103.7, a pH of 7.2, at which point the patient was intubated. He was transferred from [facility] to [facility] ICU on 05/16/17. He was treated with Solu-Medrol 40 mg IV q.8 for 5 doses before taper to home prednisone 20 mg daily. He received azithromycin 500 mg for the first 2 days of hospitalization and received lasix.. His chest x -ray on 05/16/17 demonstrated moderate vascular congestion without significant interval change between February 11. A sputum Gram stain showed normal telma from 05/16/17 with MRSA negative nasal PCR. ABG on 05/16/17 showed pH of 7.33, carbon dioxide 88, oxygen 60, bicarb 37.6. The patient improved on CPAP setting 08/17 on 05/16/17 and was extubated. He was stepped down from the ICU on 05/18/17 and was near his baseline on the day of discharge. The patient will continue 5-day course of azithromycin with 250 mg p.o. daily x3 days and continue his home 20 mg of prednisone. He was strongly encouraged to establish care with the associate professor of biostatistics. New prescription for Dulera was prescribed along with nicotine patches. He was strongly encouraged to follow up with a sleep study to evaluate for obstructive sleep apnea and in the strongest terms told to quit smoking; otherwise, he will continue to have COPD exacerbations and potentially cause explosive fires given his chronic O2 use. Of note, he does attest that he takes off the oxygen to go outside when he does smoke about 2 to 3 cigarettes daily. DISCHARGE MEDICATIONS: 1. Prednisone 20 mg p.o. daily. 2. Metformin 15 mg p.o. twice a day. 3. Tacrolimus 5 mg p.o. daily. 4. Propranolol 20 mg p.o. t.i.d. 5. Nicotine patch 7 mg for 24 hours daily. 6. Mometasone/formoterol 100 mg/5 two puffs inhaled twice a day. 7. Magnesium oxide 400 mg p.o. daily. 8. Lasix 40 mg p.o. daily. 9. Ferrous sulfate 325 mg p.o. daily. 10. Azithromycin 250 mg p.o. daily x3 days. 11. Albuterol inhaler q.6 hours p.r.n. DISPOSITION: Home with his home oxygen. DIET: Includes carbohydrate consistent diet. FOLLOWUP: The patient needs to follow up with his primary care doctor, Dr. Brock , by early next week along with established care with associate professor of biostatistics and likely would benefit from a sleep study. [id number] #: [id number] MTDD
== END 2017-05-19 17:35 | disposition home health service (06) | DRG 208 ==
LOC: ICU 03:13 → MED 05-18 11:21
PROVIDERS: ADMIT Internal Medicine; ATTEND Internal Medicine
PROC: 5A1935Z Respiratory Ventilation, Less than 24 Consecutive Hours (ICD-10-PCS; 2017-05-16)
PROC: 3E0234Z Introduction of Serum, Toxoid and Vaccine into Muscle, Percutaneous Approach (ICD-10-PCS; principal; 2017-05-19)
DX: J96.21 Acute and chronic respiratory failure with hypoxia (principal); Z94.4 Liver transplant status; J44.1 Chronic obstructive pulmonary disease with (acute) exacerbation; Z99.81 Dependence on supplemental oxygen; I50.9 Heart failure, unspecified; I11.0 Hypertensive heart disease with heart failure; J96.22 Acute and chronic respiratory failure with hypercapnia; Z23 Encounter for immunization; K21.9 Gastro-esophageal reflux disease without esophagitis; B19.20 Unspecified viral hepatitis C without hepatic coma; E11.9 Type 2 diabetes mellitus without complications; Z88.2 Allergy status to sulfonamides; Z83.79 Family history of other diseases of the digestive system; E87.5 Hyperkalemia; E66.9 Obesity, unspecified; G47.33 Obstructive sleep apnea (adult) (pediatric); F17.210 Nicotine dependence, cigarettes, uncomplicated; Z79.52 Long term (current) use of systemic steroids; Z79.84 Long term (current) use of oral hypoglycemic drugs; Z68.37 Body mass index [BMI] 37.0-37.9, adult
CPT/HCPCS: 36415; 71010; 80048; 80076; 82803; 83735; 84100; 85025; 85027; 87070; 87205; 87641; 90686; 93005; 94002; 94003; 94640; 94760; 99406; A9270-GY; J0456; J0696; J1644; J1940; J2704; J2920; J7507; J7512